=== PATIENT | male | born 1950 | race Caucasian/White ===

== ENCOUNTER 2017-11-21 08:05 | Outpatient (CLI) | payer MEDICARE ==
[2017-11-21 09:37] LABS: Calc. Creatinine Clearance 0 mL/min (70-130); Estimated GFR-MDRD Greater than 90
[2017-11-21] MEDS ORDERED: Gadobenate Dimeglumine 529 MG/1 ML (20ML VIAL) ONE (11:38)
--- NOTE | 2017-11-21 11:55 | MRI ---
MRI ABDOMEN WITH AND WITHOUT CONTRAST: INDICATIONS: History of cirrhosis with liver nodules. COMPARISON: MRI abdomen dated 06/25/2011. TECHNIQUE: Multiplanar, multisequence MR images were obtained of the abdomen, utilizing the hepatic mass protoco l, and 20 mL of MultiHance was utilized for the exam. Comparisons were made with the prior study luis m ed 06/25/2011. FINDINGS: Again seen is the cirrhotic morphology of the liver. The spleen is enlarged, measuring 14.6 cm. There are moderately prominent splenic varicosities, as w ell as gastroesophageal varicosities that appear stable and prominent. There are small gallstones now present within the gallbladder, particularly on coronal T2 image 22 an d image 18. No free fluid is evident. The pancreas, adrenal glands, and kidneys appear within normal limits. No bone marrow signal abnormality is evident. The dynamic post contrast images demonstrate no definite abnormal enhancement on the arterial phase i mages to suggest hepatic malignancy. There are some region of nonenhancing increased T1 signal invol ving the right hepatic lobe tip on image 60 of series 12. There is a calcified granuloma within the spleen. IMPRESSION: 1. Cirrhosis with findings of portal hypertension. 2. No suspicious arterial enhancing lesions to suggest the presence of hepatic malignancy. 3. Cholelithiasis. 4. Findings of prior granulomatous disease. POS: [facility]
== END 2017-11-21 08:06 | disposition home or self-care (01) ==
LOC: MRI 08:05
PROVIDERS: ATTEND Internal Medicine Gastroenterology
DX: K74.60 Unspecified cirrhosis of liver (principal); K76.89 Other specified diseases of liver; K80.20 Calculus of gallbladder without cholecystitis without obstruction
CPT/HCPCS: 36415; 74183; 82565

== ENCOUNTER 2018-08-13 11:22 | Outpatient (CLI) | payer MEDICARE ==
--- NOTE | 2018-08-13 14:56 | MRI ---
MRI OF THE ABDOMEN WITHOUT AND WITH CONTRAST: COMPARISON: 11/21/2017. HISTORY: Cirrhosis with portal hypertension. TECHNIQUE: Multiplanar, multisequence MR images were obtained of the abdomen without and with IV contrast. FINDINGS: The liver is nodular and cirrhotic in appearance. There are multiple regenerative nodules. No suspi cious liver masses are identified. The spleen is enlarged measuring 14.3 cm in length. Low signal l esions within the spleen may represent [place] bodies. There are mild retroperitoneal varices an d a few esophageal varices. No obvious filling defects are seen in the gallbladder on the current exam. The prior defects may rios ve been artifactual. The kidneys, adrenal glands, and pancreas are unremarkable. There is a prominent 1.8 cm maddie hepatis lymph node/peripancreatic lymph node. A mildly prominent r etroperitoneal lymph node is seen in the upper retroperitoneum, unchanged. No marrow signal abnormal ity is present. IMPRESSION: 1. Cirrhosis with sequelae of portal hypertension. No suspicious liver lesions are identified. 2. Mildly enlarged maddie hepatis and retroperitoneal lymph nodes. POS: [facility]
== END 2018-08-13 11:23 | disposition home or self-care (01) ==
LOC: BICMRI 11:22
PROVIDERS: ATTEND Internal Medicine Gastroenterology
DX: Z12.11 Encounter for screening for malignant neoplasm of colon (principal); K74.60 Unspecified cirrhosis of liver; K46.9 Unspecified abdominal hernia without obstruction or gangrene; R93.5 Abnormal findings on diagnostic imaging of other abdominal regions, including retroperitoneum; K76.6 Portal hypertension; I85.10 Secondary esophageal varices without bleeding; R59.9 Enlarged lymph nodes, unspecified
CPT/HCPCS: 74183; 82565

== ENCOUNTER 2019-03-08 08:53 | Outpatient (CLI) | payer MEDICARE ==
--- NOTE | 2019-03-08 10:45 | ULT ---
Exam: Liver ultrasound with color and spectral Doppler imaging: HISTORY: Cirrhosis Coarse heterogeneous liver echogenicity with minimal enlargement and some surface nodularity evidence for cirrhosis. Evidence for stable splenomegaly. Nonmobile nonshadowing focus within the gallbladder measuring 0.3 x 0.4 cm evidence for a polyp. No gallbladder wall thickening or common teddy t dilatation. Vascular duplex demonstrates antegrade hepatic and portal venous flow. IMPRESSION: Evidence for cirrhosis. Hepatomegaly. Splenomegaly. Gallbladder wall polyp. Antegrade hepatic venous and portal venous flow.
== END 2019-03-08 08:54 | disposition home or self-care (01) ==
LOC: BICULT 08:53
PROVIDERS: ATTEND Physician Assistant Medical
DX: K74.60 Unspecified cirrhosis of liver (principal); I85.10 Secondary esophageal varices without bleeding; R16.0 Hepatomegaly, not elsewhere classified; R16.1 Splenomegaly, not elsewhere classified; K82.4 Cholesterolosis of gallbladder; Z86.010 Personal history of colon polyps
CPT/HCPCS: 76705

== ENCOUNTER 2019-09-08 08:16 | Outpatient (CLI) | payer MEDICARE ==
--- NOTE | 2019-09-08 11:05 | MRI ---
MRI ABDOMEN WITH AND WITHOUT CONTRAST: HISTORY: K74.6, cirrhosis of the liver. COMPARISON: Multiple prior examinations, most recent MRI 08/13/2018. FINDINGS: No significant pleural effusion. No significant pericardial fluid. There is mildly increased left and right pericardial fat. The aortic contour is nonaneurysmal. There is no hydronephrosis. The spleen is enlarged, measuring 14 cm in length. There are mild splenic varices. There is a mass within hepatic segment 6, measuring 2.3 cm in size, with arterial phase hyperenhancem ent, washout and an enhancing capsule. The adrenal glands are unremarkable. Gamma antibody of the spleen. There are moderate esophageal varices. Portal vein is patent. No significant cholelithiasis. Pancreas is unremarkable. IMPRESSION: 1. A 2.3 cm mass in hepatic segment 6 is LI-RADS 5 - definite hepatocellular carcinoma, following the MRI diagnostic table and LI-RADS criteria. 2. Sequela of portal hypertension. 3. Moderate esophageal varices. 4. Moderate to severe hepatic cirrhosis with extensive fibrosis. POS: [facility]
[2019-09-08] MEDS ORDERED: Magnevist 469MG/ML 20 ML VIAL ONE (15:10)
== END 2019-09-08 08:17 | disposition home or self-care (01) ==
LOC: BICMRI 08:16
PROVIDERS: ATTEND Physician Assistant Medical
DX: K74.60 Unspecified cirrhosis of liver (principal); C22.0 Liver cell carcinoma; I85.00 Esophageal varices without bleeding; K74.0 Hepatic fibrosis; K76.6 Portal hypertension
CPT/HCPCS: 74183; 82565; A9579